=== PATIENT | male | born 1980 | race Caucasian/White ===

== ENCOUNTER 2018-05-07 20:34 | Emergency (ER) | payer SELFPAY ==
[2018-05-07] MEDS ORDERED: levETIRAcetam 500 MG TAB PO SCH (21:45)
== END 2018-05-07 22:06 | disposition home or self-care (01) ==
LOC: ERS 20:34
DX: G40.909 Epilepsy, unspecified, not intractable, without status epilepticus (principal); F41.9 Anxiety disorder, unspecified; F90.9 Attention-deficit hyperactivity disorder, unspecified type; Z79.899 Other long term (current) drug therapy
CPT/HCPCS: 99283